=== PATIENT | female | born 1985 | race Asian ===

== ENCOUNTER 2019-03-01 11:43 | Emergency (ER) | payer MEDICAID ==
[~2019-03-01] VITALS: Ht 160 cm; Wt 62.1 kg
[2019-03-01 11:49] VITALS: Ht 160 cm; Wt 62.1 kg
[2019-03-01 13:59] LABS: CALCIUM 9.2 mg/dL (8.5-10.1); CARBON DIOXIDE 27.1 mmol/L (21-32); CHLORIDE SERUM 101 mmol/L (98-107); CREATININE SERUM 0.5 mg/dL (0.6-1.0); GFR1 > 60 mL/min; GLUCOSE SERUM 105 mg/dL (74-106); POTASSIUM SERUM 4.1 mmol/L (3.5-5.1); SODIUM SERUM 136 mmol/L (136-145)
[2019-03-01 15:53] VITALS: BP 104/68
== END 2019-03-01 15:53 | disposition home or self-care (01) ==
LOC: ED 11:43
PROVIDERS: Emergency Medicine
DX: R07.1 Chest pain on breathing (principal); R05 Cough
CPT/HCPCS: 85378; Q0092